=== PATIENT | male | born 1990 | race African-American/Black ===

== ENCOUNTER 2021-06-08 20:48 | Emergency (ER) | payer SELFPAY ==
[~2021-06-08] VITALS: Ht 177.8 cm; Wt 49.9 kg
[2021-06-08] MEDS ORDERED: METOCLOPRAMIDE HCL 10 MG/2ML VIAL IM ONE (21:30)
[2021-06-08] MEDS ORDERED: METOCLOPRAMIDE HCL 10 MG/2ML VIAL ONE (21:41)
[2021-06-08] MEDS ORDERED: KETOROLAC TROMETHAMINE 30 MG/ML VIAL IV STA (22:00)
[2021-06-08] MEDS ORDERED: KETOROLAC TROMETHAMINE 60 MG/2 ML VIAL IM ONE (22:15)
== END 2021-06-08 22:02 | disposition left against medical advice (07) ==
LOC: FSED 20:58
DX: R51.9 Headache, unspecified (principal)
CPT/HCPCS: 70450; 96372; 99283; J2765